=== PATIENT | female | born 1970 | race Caucasian/White ===

== ENCOUNTER → 2020-07-06 | Outpatient (CLI) | payer OTHER ==
[~2020-07-06] MED LIST: ACHD5005 PO; ACYC200C PO; CEFD125S3 PO; CRAN1CAP3 PO; CRAN237L PO; CRAN400C PO; HYDR-4226 PO; METF-397 PO; ONDA4TAB11 PO; ONDA8TAB13 PO; SACU1TAB2 PO; [UNRECOGNIZED DRUG - CODE] PO; [UNRECOGNIZED DRUG - CODE] PO
== END ==
LOC: RAD FS 08:12
DX: Z53.9 Procedure and treatment not carried out, unspecified reason (principal)

== ENCOUNTER → 2022-01-03 | Day surgery (SDC) | payer BC, MEDICAID ==
--- NOTE | 2018-09-04 07:35 | ED General ---
General Chief Complaint: Emergency Delivery-Mother Stated Complaint: sick History of Present Illness Date Seen by Provider: September 04, 2018 Time Seen by Provider: 07:30 Allergies and Home Medications Allergies Coded Allergies: peanut (Verified Allergy, Severe, 06/30/16) soy (Verified Allergy, Severe, 06/30/16) wheat (Verified Allergy, Severe, 06/30/16) corn (Verified Allergy, Intermediate, 06/30/16) morphine (Verified Allergy, Unknown, 11/25/15) Home Medications Babcock Flavor 25 Ml Syrup, 25 ML PO ONCE Prescribed by: OLMAN PICHARDO on 05/15/18 1439 Cranberry 400 Mg Capsule, 400 MG PO DAILY, (Reported) Cranberry Juice 237 Ml Liquid, 237 ML PO DAILY Prescribed by: GUILLERMO FARLEY on 01/25/17 1023 Metformin HCl 500 Mg Tablet, 1,000 MG PO BID Prescribed by: TRES FLORES on 06/06/18 1106 Milk Based Formula/[place] Starch 237 Ml Liquid, 237 ML PO 5XD Prescribed by: GUILLERMO FARLEY on 06/23/16 1227 Sacubitril/Valsartan 1 Each Tablet, 1 TAB PO BID Prescribed by: TRES FLORES on 05/15/18 1514 Patient Home Medication List Home Medication List Reviewed: Yes Review of Systems All Other Systems Reviewed Negative Unless Noted: Yes Past Oeynpni-Zypyuj-Ffwdwr Hx Past Med/Social Hx: Reviewed Nursing Past Med/Soc Hx Patient Social History Recent Foreign Travel: No Contact w/Someone Who Travel: No Family Medical History Reviewed and Corrections made Physical Exam-Suspected Sepsis Physical Exam Vital Signs Capillary Refill : Height, Weight, BMI Height: 5'3.00" Weight: 145lbs. 0.0oz. [id number]; 25.7 BMI Method: Extremity: Other Progress/Results/Core Measures Suspected Sepsis SIRS Temperature: Pulse: Respiratory Rate: Blood Pressure / Mean: Results/Orders My Orders Orders - JAZZY REYNA MD Cbc With Automated Diff (09/04/18 07:16) Magnesium (09/04/18 07:16) Chest 1 View Ap/Pa Only (09/04/18 07:16) Ekg Tracing (09/04/18 07:16) Comprehensive Metabolic Panel (09/04/18 07:16) Protime With Inr (09/04/18 07:16) Partial Thromboplastin Time (09/04/18 07:16) O2 (09/04/18 07:16) Monitor-Rhythm Ecg Trace Only (09/04/18 07:16) Aspirin Chewable Tablet (Baby Aspirin Ch (09/04/18 07:30) Nitroglycerin 0.4 Mg Btl 25's (Nitrostat (09/04/18 07:30) Ed Iv/Invasive Line Start (09/04/18 07:16) Troponin T (09/04/18 07:16) Probnp Fs (09/04/18 07:16) Vital Signs/I&O Capillary Refill : Departure Impression Disposition: 01 HOME, SELF-CARE Condition: Improved Departure-Patient Inst. Patient Instructions: Abdominal Aortic Aneurysm Scripts Cefdinir (Cefdinir) 125 Mg/5 Ml Susp.recon 5 ML PO DAILY, #50 ML 0 Refills Prov: JAZZY REYNA MD 09/04/18 Metformin HCl (Metformin HCl) 500 Mg Tablet 1000 MG PO BID for 30 Days, TAB Prov: GUILLERMO FARLEY MD 06/06/18 JAZZY REYNA MD September 04, 2018 07:35
[2018-10-11 08:58] VITALS: BP 120/90
[2018-10-11 09:00] VITALS: BP 120/90
[2018-10-11 09:02] VITALS: BP 120/90
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
--- NOTE | 2019-01-16 14:13 | Physical Therapy Evaluation ---
PT Evaluation-General Medical Diagnosis Admission Date Height/Weight Height (Feet): 5 Height (Inches): 3.00 Weight (Pounds): 145 Weight (Ounces): 0.0 Precautions Precautions/Isolations: Airborne Isolation, Chemo Precautions Prior Prior Level of Function Therapy Quality Codes: 6 Independent with activity with or without an assistive device 5 Patient requires set up or clean up by helper. Patient completes activity by themselves 4 Supervision or touching assist (CGA). Stewart provide cues , steadying evelyn t 3 The helper provides less than half the effort to complete the activity 2 The helper provides more than half the effort to complete the activity 1 Dependent. The helper does all the effort to complete an activity 7 Patient refused to complete or attempt activity 9 The patient did not perform the activity before the current illness or injury 88 Not attempted due to Medical conditions or safety concerns Indoor Mobility (Ambulation): Needed Some Help LAURA HODGES OT Jan 16, 2019 14:13
[2019-01-22 15:54] VITALS: BP 120/100
[2019-02-14] MEDS: morphine INJ 10 MG/ML 1ML (SYR OR VIAL) IVP PRN (14:42)
[2019-02-24] MEDS: NS IV 1000 ML 1,000 ML IV SCH ×2 (13:00→13:30)
[2019-02-24 13:37] VITALS: BP 130/90
[2019-02-24 13:38] VITALS: BP_SYST 130; BP_SYST 140; BP_DIAS 100; BP_DIAS 90
[2019-03-04 09:09] VITALS: BP 140/90
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
--- NOTE | 2019-06-02 13:51 | Progress Note ---
Subjective Review of Systems General: Chills, Night Sweats, Fatigue; No Malaise, No Appetite; Other (TEST) HEENT: Head Aches (MIGRAINE) Pulmonary: Dyspnea, Cough; No Pleuritic Chest Pain, No Other Cardiovascular: Orthopnea, Paroxysmal Noc. Dyspnea, Edema, Lt Headedness, Ot her; No: Chest Pain, Palpitations Objective Exam Last Set of Vital Signs Capillary Refill : Less Than 3 Seconds Assessment/Plan Assessment/Plan (1) Sepsis Status: Acute Assessment & Plan: ASSESSMENT PLAN Qualifiers: Qualified Codes: A41.01 - Sepsis due to methicillin susceptible Staphylococcus aureus; R65.20 - Severe sepsis without septic shock; N17.1 - Acute kidney failure with acute cortical necrosis (2) CHF (congestive heart failure) (3) Anemia (4) DVT (deep venous thrombosis) Status: Acute (5) Abdominal pain Status: Acute Qualifiers: Qualified Codes: R10.84 - Generalized abdominal pain Clinical Quality Measures DVT/VTE Risk/Contraindication: Risk Factor Score Per Nursin RFS Level Per Nursing on Admit: 4+=Very High Sepsis: Within 3hrs of presentation: Admin fluids, Admin 30ml/kg IBW due to BMI>30, Admin ABX, Blood cultures prior to ABX's, Focus exam, Lactate level GUILLERMO FARLEY MD Jun 02, 2019 13:51
[2019-07-02 09:24] VITALS: BP 140/90
--- NOTE | 2019-11-13 15:04 | Procedure/Intervention Note ---
Procedures/Interventions Dental Procedures: Dental I&D Date of ETT Placement: Jun 30, 2018 Time of ETT Placement: 908 Medications: Etomidate Positive End Tide CO2: Yes Breath Sounds after Intubation: bilateral-equal Intubation Complications: no complications, nose-unsuccessful attempt Post Intubation Xray: Yes TESTING Staple Repair: Stapler Skin Precise GUILLERMO FARLEY MD Nov 13, 2019 15:04
--- NOTE | 2019-11-13 15:09 | History & Physical ---
History of Present Illness History of Present Illness Date of Admission I consulted on this patient on 11/13/19 15:04 Attending Physician Admitting Physician Consult Allergies and Home Medications Allergies Coded Allergies: peanut (Verified Allergy, Severe, 06/30/16) soy (Verified Allergy, Severe, 06/30/16) wheat (Verified Allergy, Severe, 06/30/16) corn (Verified Allergy, Intermediate, 06/30/16) Sulfa (Sulfonamide Antibiotics) (Verified Allergy, Unknown, 02/24/19) NAUSA AND VOMITING morphine (Verified Allergy, Unknown, 11/25/15) Uncoded Allergies: CHOCOLATE SYRUP (Adverse Reaction, Unknown, 02/24/19) NAUSEA Home Medications Cefdinir 125 Mg/5 Ml Susp.recon, 5 ML PO DAILY Prescribed by: JAZZY REYNA on 09/04/18 0745 Babcock Flavor 25 Ml Syrup, 25 ML PO ONCE Prescribed by: OLMAN PICHARDO on 05/15/18 1439 Cranberry 400 Mg Capsule, 400 MG PO DAILY, (Reported) Cranberry Juice 237 Ml Liquid, 237 ML PO DAILY Prescribed by: GUILLERMO FARLEY on 01/25/17 1023 Hydrocodone/Acetaminophen 1 Each Tablet, 1 TAB PO Q6H Prescribed by: OLMAN PICHARDO on 06/20/19 1224 Metformin HCl 500 Mg Tablet, 1,000 MG PO BID Prescribed by: TRES FLORES on 06/06/18 1106 Milk Based Formula/[place] Starch 237 Ml Liquid, 237 ML PO 5XD Prescribed by: GUILLERMO FARLEY on 06/23/16 1227 Ondansetron 8 Mg Tab.rapdis, 8 MG PO Q8H, (Reported) Ondansetron 4 Mg Tab.rapdis, 8 MG PO Q6H PRN for NAUSEA/VOMITING Prescribed by: BONNY MCNAMARA on 05/30/19 1902 Sacubitril/Valsartan 1 Each Tablet, 1 TAB PO BID Prescribed by: TRES FLORES on 05/15/18 1514 Past Qwyghce-Vpdvjr-Fwsqel Hx Patient Social History Alcohol Use: Regular Use Alcohol Beverage of Choice: Cheap Liquor Smoking Status: Current Everyday Smoker Type Used: MOGL Recent Foreign Travel: No Contact w/other who traveled: No Immunizations Up To Date Tetanus Booster (TDap): Less than 5yrs Surgeries Gallbladder (2019) Family Medical History Significant Family History: No Pertinent Family Hx, DVT/PE Physical Exam Vital Signs Capillary Refill : Less Than 3 Seconds Height, Weight, BMI Height: 5'3.00" Weight: 145lbs. 0.0oz. 65.553495fe; 244.14 BMI Method: Assessment/Plan Assessment and Plan Problems: (1) Sepsis Status: Acute Qualifiers: Qualified Codes: A41.01 - Sepsis due to methicillin susceptible Staphylococcus aureus; R65.20 - Severe sepsis without septic shock; N17.1 - Acute kidney failure with acute cortical necrosis (2) Abdominal wall pain Status: Acute Clinical Quality Measures DVT/VTE Risk/Contraindication: Risk Factor Score Per Nursin RFS Level Per Nursing on Admit: 4+=Very High LINNEA GUIDRY MED STUDENT Nov 13, 2019 15:09
--- NOTE | 2019-11-13 15:10 | History & Physical ---
ALLI MARIE MED STUDENT 11/13/19 1510: History of Present Illness History of Present Illness Date of Admission I consulted on this patient on 11/13/19 15:05 Attending Physician Admitting Physician Consult Allergies and Home Medications Allergies Coded Allergies: peanut (Verified Allergy, Severe, 06/30/16) soy (Verified Allergy, Severe, 06/30/16) wheat (Verified Allergy, Severe, 06/30/16) corn (Verified Allergy, Intermediate, 06/30/16) Sulfa (Sulfonamide Antibiotics) (Verified Allergy, Unknown, 02/24/19) NAUSA AND VOMITING morphine (Verified Allergy, Unknown, 11/25/15) Uncoded Allergies: CHOCOLATE SYRUP (Adverse Reaction, Unknown, 02/24/19) NAUSEA Home Medications Cefdinir 125 Mg/5 Ml Susp.recon, 5 ML PO DAILY Prescribed by: JAZZY REYNA on 09/04/18 0745 Babcock Flavor 25 Ml Syrup, 25 ML PO ONCE Prescribed by: OLMAN PICHARDO on 05/15/18 1439 Cranberry 400 Mg Capsule, 400 MG PO DAILY, (Reported) Cranberry Juice 237 Ml Liquid, 237 ML PO DAILY Prescribed by: GUILLERMO FARLEY on 01/25/17 1023 Hydrocodone/Acetaminophen 1 Each Tablet, 1 TAB PO Q6H Prescribed by: OLMAN PICHARDO on 06/20/19 1224 Metformin HCl 500 Mg Tablet, 1,000 MG PO BID Prescribed by: TRES FLORES on 06/06/18 1106 Milk Based Formula/[place] Starch 237 Ml Liquid, 237 ML PO 5XD Prescribed by: GUILLERMO FARLEY on 06/23/16 1227 Ondansetron 8 Mg Tab.rapdis, 8 MG PO Q8H, (Reported) Ondansetron 4 Mg Tab.rapdis, 8 MG PO Q6H PRN for NAUSEA/VOMITING Prescribed by: BONNY MCNAMARA on 05/30/19 1902 Sacubitril/Valsartan 1 Each Tablet, 1 TAB PO BID Prescribed by: TRES FLORES on 05/15/18 1514 Patient Home Medication List Home Medication List Reviewed: Yes Past Zylgtgk-Ehonjk-Qefxbt Hx Patient Social History Alcohol Use: Regular Use Alcohol Beverage of Choice: Cheap Liquor Smoking Status: Current Everyday Smoker Type Used: Hookah Recent Foreign Travel: No Contact w/other who traveled: No Immunizations Up To Date Tetanus Booster (TDap): Less than 5yrs Surgeries Gallbladder Family Medical History Significant Family History: No Pertinent Family Hx, DVT/PE Review of Systems Constitutional: no symptoms reported EENTM: ear discharge, dental problems; No see HPI, No no symptoms reported, No hearing loss, No ear pain, No blurred vision, No double vision, No eye pain, No tearing, No vision loss, No hoarseness, No mouth pain, No mouth swelling, No epistaxis, No nose congestion, No nose pain, No throat pain, No throat swelling, No other Respiratory: see HPI Cardiovascular: see HPI Gastrointestinal: see HPI Genitourinary: see HPI Musculoskeletal: see HPI Skin: see HPI Psychiatric/Neurological: No Symptoms Reported, See HPI All Other Systems Reviewed Negative Unless Noted: Yes Physical Exam Vital Signs Capillary Refill : Less Than 3 Seconds Height, Weight, BMI Height: 5'3.00" Weight: 145lbs. 0.0oz. 65.909889oc; 244.14 BMI Method: Neck: Full Range of Motion, Normal Inspection, Non Tender, Supple, Carotid Bruit; No JVD, No Limited Range of Motion, No Lymphadenopathy (L), No Lymphadenopathy (R), No Tender Lateral, No Tender Midline, No Thyromegaly, No Other Respiratory: Chest Non Tender, Lungs Clear, Normal Breath Sounds, No Accessory Muscle Use, No Respiratory Distress; No Accessory Muscle Use, No Crackles, No Decreased Breath Sounds, No Expiration, No Inspiration, No Pleural Rub, No Rales, No Respiratory Distress, No Rhonci, No Stridor, No Wheezing, No Other Cardiovascular: Regular Rate, Rhythm, No Edema, No Gallop, No JVD, No Murmur, Normal Peripheral Pulses; No Bradycardia, No Diastolic Murmur, No Systolic Murmur, No Extra Beats, No Friction Rub, No Gallop/S3, No Gallop/S4, No Irregularly Irregular, No JVD, No Tachycardia, No Other Assessment/Plan Assessment and Plan Problems: (1) Sepsis Status: Acute Qualifiers: Qualified Codes: A41.01 - Sepsis due to methicillin susceptible Staphylococcus aureus; R65.20 - Severe sepsis without septic shock; N17.1 - Acute kidney failure with acute cortical necrosis (2) Abdominal wall pain Status: Acute (3) Abdominal pain Status: Acute Qualifiers: Qualified Codes: R10.84 - Generalized abdominal pain Clinical Quality Measures DVT/VTE Risk/Contraindication: Risk Factor Score Per Nursin RFS Level Per Nursing on Admit: 4+=Very High ROSA PETERS DO 11/14/19 0718: Allergies and Home Medications Allergies Coded Allergies: peanut (Verified Allergy, Severe, 06/30/16) soy (Verified Allergy, Severe, 06/30/16) wheat (Verified Allergy, Severe, 06/30/16) corn (Verified Allergy, Intermediate, 06/30/16) Sulfa (Sulfonamide Antibiotics) (Verified Allergy, Unknown, 02/24/19) NAUSA AND VOMITING morphine (Verified Allergy, Unknown, 11/25/15) Uncoded Allergies: CHOCOLATE SYRUP (Adverse Reaction, Unknown, 02/24/19) NAUSEA Home Medications Cefdinir 125 Mg/5 Ml Susp.recon, 5 ML PO DAILY Prescribed by: JAZZY REYNA on 09/04/18 0745 Babcock Flavor 25 Ml Syrup, 25 ML PO ONCE Prescribed by: OLMAN PICHARDO on 05/15/18 1439 Cranberry 400 Mg Capsule, 400 MG PO DAILY, (Reported) Cranberry Juice 237 Ml Liquid, 237 ML PO DAILY Prescribed by: GUILLERMO FARLEY on 01/25/17 1023 Hydrocodone/Acetaminophen 1 Each Tablet, 1 TAB PO Q6H Prescribed by: OLMAN PICHARDO on 06/20/19 1224 Metformin HCl 500 Mg Tablet, 1,000 MG PO BID Prescribed by: TRES FLORES on 06/06/18 1106 Milk Based Formula/[place] Starch 237 Ml Liquid, 237 ML PO 5XD Prescribed by: GUILLERMO FARLEY on 06/23/16 1227 Ondansetron 8 Mg Tab.rapdis, 8 MG PO Q8H, (Reported) Ondansetron 4 Mg Tab.rapdis, 8 MG PO Q6H PRN for NAUSEA/VOMITING Prescribed by: BONNY MCNAMARA on 05/30/19 1902 Sacubitril/Valsartan 1 Each Tablet, 1 TAB PO BID Prescribed by: TRES FLORES on 05/15/18 1514 ALLI MARIE MED STUDENT Nov 13, 2019 15:10 ROSA PETERS DO Nov 14, 2019 07:18
--- NOTE | 2019-11-13 15:10 | History & Physical ---
History of Present Illness History of Present Illness Reason for visit/HPI TEST Date of Admission Date Seen by a Provider: Nov 13, 2019 Time Seen by a Provider: 15:07 I consulted on this patient on 11/13/19 15:04 Attending Physician Admitting Physician Consult Allergies and Home Medications Allergies Coded Allergies: peanut (Verified Allergy, Severe, 06/30/16) soy (Verified Allergy, Severe, 06/30/16) wheat (Verified Allergy, Severe, 06/30/16) corn (Verified Allergy, Intermediate, 06/30/16) Sulfa (Sulfonamide Antibiotics) (Verified Allergy, Unknown, 02/24/19) NAUSA AND VOMITING morphine (Verified Allergy, Unknown, 11/25/15) Uncoded Allergies: CHOCOLATE SYRUP (Adverse Reaction, Unknown, 02/24/19) NAUSEA Home Medications Cefdinir 125 Mg/5 Ml Susp.recon, 5 ML PO DAILY Prescribed by: JAZZY REYNA on 09/04/18 0745 Babcock Flavor 25 Ml Syrup, 25 ML PO ONCE Prescribed by: OLMAN PICHARDO on 05/15/18 1439 Cranberry 400 Mg Capsule, 400 MG PO DAILY, (Reported) Cranberry Juice 237 Ml Liquid, 237 ML PO DAILY Prescribed by: GUILLERMO FARLEY on 01/25/17 1023 Hydrocodone/Acetaminophen 1 Each Tablet, 1 TAB PO Q6H Prescribed by: OLMAN PICHARDO on 06/20/19 1224 Metformin HCl 500 Mg Tablet, 1,000 MG PO BID Prescribed by: TRES FLORES on 06/06/18 1106 Milk Based Formula/[place] Starch 237 Ml Liquid, 237 ML PO 5XD Prescribed by: GUILLERMO FARLEY on 06/23/16 1227 Ondansetron 8 Mg Tab.rapdis, 8 MG PO Q8H, (Reported) Ondansetron 4 Mg Tab.rapdis, 8 MG PO Q6H PRN for NAUSEA/VOMITING Prescribed by: BONNY MCNAMARA on 05/30/19 1902 Sacubitril/Valsartan 1 Each Tablet, 1 TAB PO BID Prescribed by: TRES FLORES on 05/15/18 1514 Patient Home Medication List Home Medication List Reviewed: Yes (NURSING DOCUMENTED HOME MEDS) Past Azdancs-Pnsaai-Gruugu Hx Patient Social History Alcohol Use: Regular Use Alcohol Beverage of Choice: Cheap Liquor Smoking Status: Current Everyday Smoker Type Used: Hookah Recent Foreign Travel: No Contact w/other who traveled: No Immunizations Up To Date Tetanus Booster (TDap): Less than 5yrs Surgeries Angioplasty, Appendectomy, Bladder Surgery, Breast Family Medical History Significant Family History: No Pertinent Family Hx, DVT/PE Review of Systems Constitutional: no symptoms reported, see HPI; No chills, No diaphoresis, No dizziness, No fever, No malaise, No weakness, No weight gain, No weight loss, No other EENTM: see HPI, no symptoms reported; No ear discharge, No hearing loss, No ear pain, No blurred vision, No double vision Respiratory: no symptoms reported, see HPI Cardiovascular: no symptoms reported, see HPI; No chest pain, No edema; Hx of Intervention; No palpitations; syncope, vascular heart diseas, other Gastrointestinal: dysphagia, hematemesis, heartburn Genitourinary: see HPI Musculoskeletal: see HPI Skin: see HPI Psychiatric/Neurological: No Symptoms Reported, See HPI All Other Systems Reviewed Negative Unless Noted: Yes (Negative excepted noted.) Physical Exam Vital Signs Capillary Refill : Less Than 3 Seconds Height, Weight, BMI Height: 5'3.00" Weight: 145lbs. 0.0oz. 65.915834tc; 244.14 BMI Method: General Appearance: No Apparent Distress, WD/WN HEENT: PERRL/EOMI, TMs Normal, Normal ENT Inspection, Pharynx Normal Neck: Full Range of Motion, Normal Inspection, Non Tender, Supple, Carotid Bruit Cardiovascular: Regular Rate, Rhythm, No Edema, No Gallop, No JVD, No Murmur, Normal Peripheral Pulses; No Bradycardia, No Diastolic Murmur, No Systolic Murmur, No Extra Beats, No Friction Rub, No Gallop/S3, No Gallop/S4, No Irregularly Irregular, No JVD, No Tachycardia, No Other Gastrointestinal: Normal Bowel Sounds, No Organomegaly, No Pulsatile Mass, Non Tender, Soft; No Abnormal Bowel Sounds, No Distended, No Guarding, No Hepatomegaly, No Hernia, No Mass, No Rebound, No Splenomegaly, No Tenderness, No Other Assessment/Plan Assessment and Plan Problems: (1) Sepsis Status: Acute Qualifiers: Qualified Codes: A41.01 - Sepsis due to methicillin susceptible Staphylococcus aureus; R65.20 - Severe sepsis without septic shock; N17.1 - Acute kidney failure with acute cortical necrosis Assessment & Plan: ASSESSMENT PLAN (2) Abdominal pain Status: Acute Qualifiers: Qualified Codes: R10.84 - Generalized abdominal pain (3) DVT (deep venous thrombosis) Status: Acute (4) Gastroesophageal reflux disease Status: Acute Qualifiers: Qualified Codes: K21.0 - Gastro-esophageal reflux disease with esophagitis Clinical Quality Measures DVT/VTE Risk/Contraindication: Risk Factor Score Per Nursin RFS Level Per Nursing on Admit: 4+=Very High Sepsis: Within 3hrs of presentation: Admin fluids, Admin 30ml/kg IBW due to BMI>30, Admin ABX, Blood cultures prior to ABX's, D/C Instructions given to patient, Focus exam, Lactate level (2.5 REDRAWING IN 2 HRS) Copy Copies To 1: GUILLERMO FARLEY MD Copies To 2: KARON CARRANZA JOHN E MD Nov 13, 2019 15:09
--- NOTE | 2019-11-13 15:10 | History & Physical ---
History of Present Illness History of Present Illness Reason for visit/HPI Testing Date of Admission Date Seen by a Provider: Nov 13, 2019 Time Seen by a Provider: 15:07 I consulted on this patient on 11/13/19 15:04 Attending Physician Admitting Physician Consult Allergies and Home Medications Allergies Coded Allergies: peanut (Verified Allergy, Severe, 06/30/16) soy (Verified Allergy, Severe, 06/30/16) wheat (Verified Allergy, Severe, 06/30/16) corn (Verified Allergy, Intermediate, 06/30/16) Sulfa (Sulfonamide Antibiotics) (Verified Allergy, Unknown, 02/24/19) NAUSA AND VOMITING morphine (Verified Allergy, Unknown, 11/25/15) Uncoded Allergies: CHOCOLATE SYRUP (Adverse Reaction, Unknown, 02/24/19) NAUSEA Home Medications Cefdinir 125 Mg/5 Ml Susp.recon, 5 ML PO DAILY Prescribed by: JAZZY REYNA on 09/04/18 0745 Babcock Flavor 25 Ml Syrup, 25 ML PO ONCE Prescribed by: OLMAN PICHARDO on 05/15/18 1439 Cranberry 400 Mg Capsule, 400 MG PO DAILY, (Reported) Cranberry Juice 237 Ml Liquid, 237 ML PO DAILY Prescribed by: GUILLERMO FARLEY on 01/25/17 1023 Hydrocodone/Acetaminophen 1 Each Tablet, 1 TAB PO Q6H Prescribed by: OLMAN PICHARDO on 06/20/19 1224 Metformin HCl 500 Mg Tablet, 1,000 MG PO BID Prescribed by: TRES FLORES on 06/06/18 1106 Milk Based Formula/[place] Starch 237 Ml Liquid, 237 ML PO 5XD Prescribed by: GUILLERMO FARLEY on 06/23/16 1227 Ondansetron 8 Mg Tab.rapdis, 8 MG PO Q8H, (Reported) Ondansetron 4 Mg Tab.rapdis, 8 MG PO Q6H PRN for NAUSEA/VOMITING Prescribed by: BONNY MCNAMARA on 05/30/19 1902 Sacubitril/Valsartan 1 Each Tablet, 1 TAB PO BID Prescribed by: TRES FLORES on 05/15/18 1514 Patient Home Medication List Home Medication List Reviewed: Yes Past Fnyhqxl-Masyfr-Ntipsg Hx Patient Social History Alcohol Use: Regular Use Smoking Status: Current Everyday Smoker Type Used: Hookah Recent Foreign Travel: No Contact w/other who traveled: No Immunizations Up To Date Tetanus Booster (TDap): Less than 5yrs Family Medical History Significant Family History: No Pertinent Family Hx, DVT/PE Review of Systems Constitutional: no symptoms reported; No see HPI, No chills, No diaphoresis, No dizziness, No fever, No malaise, No weakness, No weight gain, No weight loss, No other EENTM: ear discharge, ear pain; No hearing loss, No blurred vision Respiratory: see HPI Cardiovascular: see HPI Gastrointestinal: see HPI; No hematemesis Genitourinary: see HPI Musculoskeletal: see HPI, gout, muscle pain Skin: see HPI Psychiatric/Neurological: No Symptoms Reported, See HPI All Other Systems Reviewed Negative Unless Noted: Yes Physical Exam Vital Signs Capillary Refill : Less Than 3 Seconds Height, Weight, BMI Height: 5'3.00" Weight: 145lbs. 0.0oz. 65.518564jy; 244.14 BMI Method: Cardiovascular: Regular Rate, Rhythm, No Edema, No Gallop, No JVD, No Murmur, Normal Peripheral Pulses; No Bradycardia, No Diastolic Murmur, No Systolic Murmur, No Extra Beats, No Friction Rub, No Gallop/S3, No Gallop/S4, No Irregularly Irregular, No JVD, No Tachycardia, No Other Genital/Rectal: Blood at Uretheral Meatus Assessment/Plan Assessment and Plan Problems: (1) Sepsis Status: Acute Qualifiers: Qualified Codes: A41.01 - Sepsis due to methicillin susceptible Staphylococcus aureus; R65.20 - Severe sepsis without septic shock; N17.1 - Acute kidney failure with acute cortical necrosis (2) DVT (deep venous thrombosis) Status: Acute Clinical Quality Measures DVT/VTE Risk/Contraindication: Risk Factor Score Per Nursin RFS Level Per Nursing on Admit: 4+=Very High LEO GUIDRY MED STUDENT Nov 13, 2019 15:10
--- NOTE | 2019-11-13 15:10 | History & Physical ---
History of Present Illness History of Present Illness Reason for visit/HPI test Date of Admission 11/12/19 Date Seen by a Provider: Nov 14, 2019 Time Seen by a Provider: 03:12 I consulted on this patient on 11/13/19 15:04 Attending Physician Admitting Physician Consult Allergies and Home Medications Allergies Coded Allergies: peanut (Verified Allergy, Severe, 06/30/16) soy (Verified Allergy, Severe, 06/30/16) wheat (Verified Allergy, Severe, 06/30/16) corn (Verified Allergy, Intermediate, 06/30/16) Sulfa (Sulfonamide Antibiotics) (Verified Allergy, Unknown, 02/24/19) NAUSA AND VOMITING morphine (Verified Allergy, Unknown, 11/25/15) Uncoded Allergies: CHOCOLATE SYRUP (Adverse Reaction, Unknown, 02/24/19) NAUSEA Home Medications Cefdinir 125 Mg/5 Ml Susp.recon, 5 ML PO DAILY Prescribed by: JAZZY REYNA on 09/04/18 0745 Babcock Flavor 25 Ml Syrup, 25 ML PO ONCE Prescribed by: OLMAN PICHARDO on 05/15/18 1439 Cranberry 400 Mg Capsule, 400 MG PO DAILY, (Reported) Cranberry Juice 237 Ml Liquid, 237 ML PO DAILY Prescribed by: GUILLERMO FARLEY on 01/25/17 1023 Hydrocodone/Acetaminophen 1 Each Tablet, 1 TAB PO Q6H Prescribed by: OLMAN PICHARDO on 06/20/19 1224 Metformin HCl 500 Mg Tablet, 1,000 MG PO BID Prescribed by: TRES FLORES on 06/06/18 1106 Milk Based Formula/[place] Starch 237 Ml Liquid, 237 ML PO 5XD Prescribed by: GUILLERMO FARLEY on 06/23/16 1227 Ondansetron 8 Mg Tab.rapdis, 8 MG PO Q8H, (Reported) Ondansetron 4 Mg Tab.rapdis, 8 MG PO Q6H PRN for NAUSEA/VOMITING Prescribed by: BONNY MCNAMARA on 05/30/19 1902 Sacubitril/Valsartan 1 Each Tablet, 1 TAB PO BID Prescribed by: TRES FLORES on 05/15/18 1514 Patient Home Medication List Home Medication List Reviewed: Yes (nurse did it) Past Jdeoxcw-Fhovjb-Oepypl Hx Patient Social History Alcohol Use: Regular Use Alcohol Beverage of Choice: Cheap Liquor Smoking Status: Current Everyday Smoker Type Used: Hookah, Pipe Physical Abuse Screen: Yes Recent Foreign Travel: No Contact w/other who traveled: No Immunizations Up To Date Tetanus Booster (TDap): Less than 5yrs Surgeries Gallbladder (2019) Neurological Multiple Sclerosis Family Medical History Significant Family History: No Pertinent Family Hx, DVT/PE Review of Systems Constitutional: no symptoms reported, see HPI; No chills, No diaphoresis, No dizziness, No fever, No malaise, No weakness, No weight gain, No weight loss, No other EENTM: ear pain; No ear discharge, No hearing loss, No double vision Respiratory: no symptoms reported, see HPI; No cough; dyspnea on exertion, hemoptysis, orthopnea, phlegm, short of breath, stridor, wheezing, other Cardiovascular: No no symptoms reported, No see HPI, No chest pain, No edema, No Hx of Intervention, No palpitations, No syncope, No vascular heart diseas, No other Gastrointestinal: see HPI Physical Exam Vital Signs Capillary Refill : Less Than 3 Seconds Height, Weight, BMI Height: 5'3.00" Weight: 145lbs. 0.0oz. 65.824592dr; 244.14 BMI Method: Eyes: Bilateral Eye Abnormal Pupil Neck: Non Tender Assessment/Plan Assessment and Plan Problems: (1) Anemia Clinical Quality Measures DVT/VTE Risk/Contraindication: Risk Factor Score Per Nursin RFS Level Per Nursing on Admit: 4+=Very High Copy Copies To 1: GUILLERMO FARLEY MD, ELIZABETH X MED STUDENT Nov 13, 2019 15:09
--- NOTE | 2020-01-19 14:30 | Pulmonary Progress Note ---
Subjective Date Seen by a Provider: Jan 19, 2020 Time Seen by a Provider: 14:25 Subjective/Events-last exam TESTING Sepsis Event Evaluation Height, Weight, BMI Height: 5'3.00" Weight: 145lbs. 0.0oz. 65.545543wo; 244.14 BMI Method: Bedside Monitoring CVP Measures: Less than 8 ScvO2 measures: Greater than 70% Passive Leg Raise/Fluid Bolus: Positive Focused Exam Respiratory: Chest Non Tender; No Crackles Cardiovascular: Regular Rate, Rhythm, No Edema, No Gallop, No JVD, No Murmur, Normal Peripheral Pulses; No Bradycardia, No Diastolic Murmur, No Systolic Murmur, No Extra Beats, No Friction Rub, No Gallop/S3, No Gallop/S4, No Irregula rly Irregular, No JVD, No Tachycardia, No Other Exam Exam Height & Weight Height: 5'3.00" Weight: 145lbs. 0.0oz. 65.609334sg; 244.14 BMI Method: General Appearance: No Apparent Distress, WD/WN HEENT: PERRL/EOMI, TMs Normal, Normal ENT Inspection, Pharynx Normal Neck: Full Range of Motion, Normal Inspection, Non Tender, Supple, Carotid Bruit; No JVD, No Limited Range of Motion, No Lymphadenopathy (L), No Lymphadenopathy (R), No Tender Lateral, No Tender Midline, No Thyromegaly, No Other Respiratory: Chest Non Tender, Lungs Clear, Normal Breath Sounds, No Accessory Muscle Use, No Respiratory Distress; No Accessory Muscle Use, No Crackles, No Decreased Breath Sounds, No Expiration, No Inspiration, No Pleural Rub, No Rales, No Respiratory Distress, No Rhonci, No Stridor, No Wheezing, No Other Cardiovascular: Regular Rate, Rhythm, No Edema, No Gallop, No JVD, No Murmur, Normal Peripheral Pulses; No Bradycardia, No Diastolic Murmur, No Systolic Murmur, No Extra Beats, No Friction Rub, No Gallop/S3, No Gallop/S4, No Irregularly Irregular, No JVD, No Tachycardia, No Other Capillary Refill: Less Than 3 Seconds Extremity: Normal Capillary Refill, Normal Inspection, Normal Range of Motion, Non Tender, No Calf Tenderness, No Pedal Edema Neurologic/Psychiatric: Alert, Oriented x3, No Motor/Sensory Deficits, Normal Mood/Affect Skin: Normal Color, Warm/Dry Lymphatic: No Adenopathy Diagnosis/Problems Diagnosis/Problems (1) Sepsis Status: Acute Assessment & Plan: FOR THE DAY ASSESSMENT PLAN Qualifiers: (2) DVT (deep venous thrombosis) Status: Acute Qualifiers: Qualified Codes: I82.432 - Acute embolism and thrombosis of left popliteal vein (3) Abdominal pain Status: Acute Qualifiers: Qualified Codes: R10.13 - Epigastric pain (4) Gastroesophageal reflux disease Status: Acute Qualifiers: Qualified Codes: K21.0 - Gastro-esophageal reflux disease with esophagitis GUILLERMO FARLEY MD Jan 19, 2020 14:30
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
[2020-07-29] MEDS: morphine INJ 10 MG/ML 1ML (SYR OR VIAL) IVP PRN (14:40)
--- NOTE | 2020-11-10 16:02 | History & Physical ---
History of Present Illness History of Present Illness Reason for visit/HPI Coughing for 5 days Date of Admission 11/09/20 Date Seen by a Provider: Nov 10, 2020 Time Seen by a Provider: 05:23 I consulted on this patient on 11/10/20 15:57 Attending Physician Admitting Physician Consult Allergies and Home Medications Allergies Coded Allergies: peanut (Verified Allergy, Severe, 06/30/16) soy (Verified Allergy, Severe, 06/30/16) corn (Verified Allergy, Intermediate, 06/30/16) Sulfa (Sulfonamide Antibiotics) (Verified Allergy, Unknown, 02/24/19) NAUSA AND VOMITING morphine (Verified Allergy, Unknown, 11/25/15) sulfalene (Verified Allergy, Unknown, 04/06/20) SOB Uncoded Allergies: chocolate bar (Allergy, Unknown, Shortness of Breath, 04/06/20) CHOCOLATE SYRUP (Adverse Reaction, Unknown, 02/24/19) NAUSEA Home Medications Cefdinir 125 Mg/5 Ml Susp.recon, 5 ML PO DAILY Prescribed by: JAZZY REYNA on 09/04/18 0745 Last Action: Reviewed Babcock Flavor 25 Ml Syrup, 25 ML PO ONCE Prescribed by: OLMAN PICHARDO on 05/15/18 1439 Last Action: Reviewed Cranberry 400 Mg Capsule, 400 MG PO DAILY, (Reported) Last Action: Reviewed Cranberry Juice 237 Ml Liquid, 237 ML PO DAILY Prescribed by: GUILLERMO FARLEY on 01/25/17 1023 Last Action: Reviewed Hydrocodone/Acetaminophen 1 Each Tablet, 1 TAB PO Q6H Prescribed by: OLMAN PICHARDO on 06/20/19 1224 Metformin HCl 500 Mg Tablet, 1,000 MG PO BID Prescribed by: TRES FLORES on 06/06/18 1106 Last Action: Reviewed Milk Based Formula/[place] Starch 237 Ml Liquid, 237 ML PO 5XD Prescribed by: GUILLERMO FARLEY on 06/23/16 1227 Last Action: Reviewed Ondansetron 8 Mg Tab.rapdis, 8 MG PO Q8H, (Reported) Last Action: Reviewed Ondansetron 4 Mg Tab.rapdis, 8 MG PO Q6H PRN for NAUSEA/VOMITING Prescribed by: BONNY MCNAMARA on 05/30/19 1902 Sacubitril/Valsartan 1 Each Tablet, 1 TAB PO BID Prescribed by: TRES FLORES on 05/15/18 1514 Last Action: Reviewed Past Czwrqpo-Bhjbkc-Dzybag Hx Patient Social History Marrital Status: single Employed/Student: unemployed, student, full-time Smoking Status: Current Someday Smoker E-Cig or Vaping type used: Nicotine (only once per montha) Current Status Communicates: Does Not Communicate Primary Language: Kyrgyz Past Medical History Surgeries: Gallbladder Multiple Sclerosis Family Medical History Reviewed and Corrections made No Pertinent Family Hx, DVT/PE Review of Systems Constitutional: no symptoms reported, chills; No diaphoresis, No dizziness, No fever, No malaise, No weakness, No weight gain; weight loss; No other Respiratory: No no symptoms reported, No see HPI; cough; No dyspnea on exertion, No hemoptysis, No orthopnea, No phlegm, No short of breath, No stridor, No wheezing, No other Physical Exam Vital Signs Capillary Refill : Less Than 3 Seconds Height, Weight, BMI Height: 5'3.00" Weight: 145lbs. 0.0oz. 65.359124hm; 244.14 BMI Method: General Appearance: No Apparent Distress, WD/WN Eyes: Bilateral Eye Normal Inspection, Bilateral Eye PERRL, Bilateral Eye EOMI Respiratory: Chest Non Tender, Lungs Clear, Normal Breath Sounds, No Accessory Muscle Use, No Respiratory Distress Assessment/Plan Assessment and Plan Problems: (1) Abdominal pain Status: Acute Qualifiers: Qualified Codes: R10.13 - Epigastric pain Assessment & Plan: Make a plan for this patient (2) Sepsis Status: Acute Qualifiers: Qualified Codes: A41.9 - Sepsis, unspecified organism; R65.21 - Severe sepsis with septic shock; N17.1 - Acute kidney failure with acute cortical necrosis Assessment & Plan: FOR THE DAY ASSESSMENT PLAN (3) Gastroesophageal reflux disease Status: Acute Qualifiers: Qualified Codes: K21.0 - Gastro-esophageal reflux disease with esophagitis (4) DVT (deep venous thrombosis) Status: Acute Qualifiers: Qualified Codes: I82.432 - Acute embolism and thrombosis of left popliteal vein Clinical Quality Measures DVT/VTE Risk/Contraindication: Risk Factor Score Per Nursin RFS Level Per Nursing on Admit: 4+=Very High ANDRIY CAVAZOS Nov 10, 2020 16:02
--- NOTE | 2020-11-15 09:22 | History & Physical-OB/GYN ---
OB - Chief Complaint & HPI Date/Time Date of Admission: Date of Admission: Date seen by a Provider: Nov 15, 2020 Time Seen by a Provider: 09:17 Chief Complaint/History OB-Reason for Admission/Chief: Labor (TEST) Hx : 30 Indication for induction: maternal discomfort Allergies and Home Medications Allergies Coded Allergies: peanut (Verified Allergy, Severe, 06/30/16) soy (Verified Allergy, Severe, 06/30/16) corn (Verified Allergy, Intermediate, 06/30/16) wool (Unverified Allergy, Intermediate, 11/10/20) Sulfa (Sulfonamide Antibiotics) (Verified Allergy, Unknown, 02/24/19) NAUSA AND VOMITING sulfalene (Verified Allergy, Unknown, 04/06/20) SOB Uncoded Allergies: chocolate bar (Allergy, Unknown, Shortness of Breath, 04/06/20) CHOCOLATE SYRUP (Adverse Reaction, Unknown, 02/24/19) NAUSEA Home Medications Cefdinir 125 Mg/5 Ml Susp.recon, 5 ML PO DAILY Prescribed by: JAZZY REYNA on 09/04/18 0745 Last Action: Reviewed Babcock Flavor 25 Ml Syrup, 25 ML PO ONCE Prescribed by: OLMAN PICHARDO on 05/15/18 1439 Last Action: Reviewed Cranberry 400 Mg Capsule, 400 MG PO DAILY, (Reported) Last Action: Reviewed Cranberry Juice 237 Ml Liquid, 237 ML PO DAILY Prescribed by: GUILLERMO FARLEY on 01/25/17 1023 Last Action: Reviewed Hydrocodone/Acetaminophen 1 Each Tablet, 1 TAB PO Q6H Prescribed by: OLMAN PICHARDO on 06/20/19 1224 Metformin HCl 500 Mg Tablet, 1,000 MG PO BID Prescribed by: TRES FLORES on 06/06/18 1106 Last Action: Reviewed Milk Based Formula/[place] Starch 237 Ml Liquid, 237 ML PO 5XD Prescribed by: GUILLERMO FARLEY on 06/23/16 1227 Last Action: Reviewed Ondansetron 8 Mg Tab.rapdis, 8 MG PO Q8H, (Reported) Last Action: Reviewed Ondansetron 4 Mg Tab.rapdis, 8 MG PO Q6H PRN for NAUSEA/VOMITING Prescribed by: BONNY MCNAMARA on 05/30/19 1902 Sacubitril/Valsartan 1 Each Tablet, 1 TAB PO BID Prescribed by: TRES FLORES on 05/15/18 1514 Last Action: Reviewed Patient Home Medication List Home Medication List Reviewed: Yes OB - History Hx of Present Ultrasounds: No ultrasounds Obstetrical Complications: None Medical Complications: None Information Induced Hypertension: No Maternal Gestational Diabetes: No Hemorrhage: No Obstetrical History Hx Termination: No Patient Past Medical History No previous med hx. Social History/Family History Alcohol Use: Regular Use Immunizations Tetanus Booster (TDap): Less than 5yrs OB - Admission Exam Physical Exam HEENT: NCAT Lungs: Clear Amniotic Fluid: Clear Heart Rate: 120's Decelerations: No Decelerations OB - Assessment/Plan/Diagnosis Assessment Assessment: active labor Admission Status: Inpatient Order (span 2 midnights) Plan Problems: (1) labor in third trimester with term delivery Assessment & Plan: Test (2) premature rupture of membranes, onset of labor within 24 hours of rupture, unspecified trimester (3) Anemia Assessment & Plan: Test, plan to order blood. Qualifiers: Qualified Codes: D50.8 - Other iron deficiency anemias Discharge Diagnosis Diagnosis: contractions, went home. BETO AMARO MED STUDENT Nov 15, 2020 09:22
--- NOTE | 2020-11-15 09:22 | History & Physical-OB/GYN ---
OB - Chief Complaint & HPI Date/Time Date of Admission: Date of Admission: Date seen by a Provider: Nov 15, 2020 Time Seen by a Provider: 09:16 Chief Complaint/History OB-Reason for Admission/Chief: Labor (TEST) Hx : 96 Indication for induction: post dates, maternal discomfort Other reason for admission: TEST Admission Nurse Assessment Rev: Yes Allergies and Home Medications Allergies Coded Allergies: peanut (Verified Allergy, Severe, 06/30/16) soy (Verified Allergy, Severe, 06/30/16) corn (Verified Allergy, Intermediate, 06/30/16) wool (Unverified Allergy, Intermediate, 11/10/20) Sulfa (Sulfonamide Antibiotics) (Verified Allergy, Unknown, 02/24/19) NAUSA AND VOMITING sulfalene (Verified Allergy, Unknown, 04/06/20) SOB Uncoded Allergies: chocolate bar (Allergy, Unknown, Shortness of Breath, 04/06/20) CHOCOLATE SYRUP (Adverse Reaction, Unknown, 02/24/19) NAUSEA Home Medications Cefdinir 125 Mg/5 Ml Susp.recon, 5 ML PO DAILY Prescribed by: JAZZY REYNA on 09/04/18 0775 Last Action: Reviewed Babcock Flavor 25 Ml Syrup, 25 ML PO ONCE Prescribed by: OLMAN PICHARDO on 05/15/18 1439 Last Action: Reviewed Cranberry 400 Mg Capsule, 400 MG PO DAILY, (Reported) Last Action: Reviewed Cranberry Juice 237 Ml Liquid, 237 ML PO DAILY Prescribed by: GUILLERMO FARLEY on 01/25/17 1023 Last Action: Reviewed Hydrocodone/Acetaminophen 1 Each Tablet, 1 TAB PO Q6H Prescribed by: OLMAN PICHARDO on 06/20/19 1224 Metformin HCl 500 Mg Tablet, 1,000 MG PO BID Prescribed by: TRES FLORES on 06/06/18 1106 Last Action: Reviewed Milk Based Formula/[place] Starch 237 Ml Liquid, 237 ML PO 5XD Prescribed by: GUILLERMO FARLEY on 06/23/16 1227 Last Action: Reviewed Ondansetron 8 Mg Tab.rapdis, 8 MG PO Q8H, (Reported) Last Action: Reviewed Ondansetron 4 Mg Tab.rapdis, 8 MG PO Q6H PRN for NAUSEA/VOMITING Prescribed by: BONNY MCNAMARA on 05/30/19 1902 Sacubitril/Valsartan 1 Each Tablet, 1 TAB PO BID Prescribed by: TRES FLORES on 05/15/18 1514 Last Action: Reviewed Patient Home Medication List Home Medication List Reviewed: No OB - History Hx of Present Care: Yes Ultrasounds: No ultrasounds Obstetrical Complications: None Information Induced Hypertension: Yes Maternal Gestational Diabetes: Yes Hemorrhage: Yes Obstetrical History Hx Termination: Yes Hx Multiple Gestation: Yes Delivery History Hx Dystocia: Yes Hx Placenta Abnormality: Yes Hx Vaginal Delivery Post C-Sec: Yes Patient Past Medical History NO PREVIOUS MED HX Social History/Family History Alcohol Use: Regular Use Immunizations Tetanus Booster (TDap): Less than 5yrs OB - Admission Exam Physical Exam HEENT: NCAT Heart: Rhythm Normal Lungs: Clear, Crackles, Rales Decelerations: No Decelerations OB - Assessment/Plan/Diagnosis Assessment Assessment: active labor Admission Status: Inpatient Order (span 2 midnights) Plan Problems: (1) Sepsis Qualifiers: Qualified Codes: A41.9 - Sepsis, unspecified organism; R65.21 - Severe sepsis with septic shock; N17.1 - Acute kidney failure with acute cortical necrosis (2) DVT (deep venous thrombosis) Qualifiers: Qualified Codes: I82.432 - Acute embolism and thrombosis of left popliteal vein (3) Abdominal pain Qualifiers: Qualified Codes: R10.13 - Epigastric pain (4) Gastroesophageal reflux disease Qualifiers: Qualified Codes: K21.0 - Gastro-esophageal reflux disease with esophagitis (5) premature rupture of membranes, onset of labor within 24 hours of rupture, unspecified trimester GUILLERMO FARLEY MD Nov 15, 2020 09:22
--- NOTE | 2020-12-13 09:48 | Progress Note ---
Objective Exam Last Set of Vital Signs Capillary Refill : Less Than 3 Seconds General: Alert, Oriented X3, Cooperative, No Acute Distress, Mild Distress Heart: Regular Rate, Normal S1, Normal S2 Results/Procedures Lab Microbiology 06/25/20 Blood Culture, Received Pending Assessment/Plan Assessment/Plan (1) COVID-19 Status: Acute Assessment & Plan: assessment plan (2) Pneumonia and influenza Status: Acute Assessment & Plan: plan for pneu (3) Sepsis Status: Acute Qualifiers: Qualified Codes: A41.9 - Sepsis, unspecified organism; R65.21 - Severe sepsis with septic shock; N17.1 - Acute kidney failure with acute cortical necrosis (4) CHF (congestive heart failure) Status: Chronic Qualifiers: (5) Anemia Status: Chronic Qualifiers: Qualified Codes: D51.8 - Other vitamin B12 deficiency anemias (6) DVT (deep venous thrombosis) Status: Acute Qualifiers: Qualified Codes: I82.432 - Acute embolism and thrombosis of left popliteal vein (7) Abdominal pain Status: Acute Qualifiers: Qualified Codes: R10.13 - Epigastric pain (8) Sepsis Status: Acute (9) Anemia (10) Pneumonia Clinical Quality Measures DVT/VTE Risk/Contraindication: Risk Factor Score Per Nursin RFS Level Per Nursing on Admit: 4+=Very High Sepsis: Within 3hrs of presentation: Admin fluids, Admin 30ml/kg IBW due to BMI>30, Admin ABX, Blood cultures prior to ABX's, Focus exam, Lactate level, Other (other) JOCELYNE COLLAZO Dec 13, 2020 09:47
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
--- NOTE | 2021-11-09 14:17 | History & Physical ---
History of Present Illness History of Present Illness Reason for visit/HPI Chest pain Date of Admission Date Seen by a Provider: Nov 09, 2021 Time Seen by a Provider: 01:56 I consulted on this patient on 11/09/21 14:11 Attending Physician Admitting Physician Admitting Physician: Attending Physician: Consult Allergies and Home Medications Allergies Coded Allergies: peanut (Verified Allergy, Severe, 06/30/16) soy (Verified Allergy, Severe, 06/30/16) corn (Verified Allergy, Intermediate, 06/30/16) wool (Unverified Allergy, Intermediate, 11/10/20) Sulfa (Sulfonamide Antibiotics) (Verified Allergy, Unknown, 02/24/19) NAUSA AND VOMITING sulfalene (Verified Allergy, Unknown, 04/06/20) SOB Uncoded Allergies: chocolate bar (Allergy, Unknown, Shortness of Breath, 04/06/20) CHOCOLATE SYRUP (Adverse Reaction, Unknown, 02/24/19) NAUSEA Patient Home Medication List Home Medication List Reviewed: Yes Docusate Sodium (Colace) 100 Mg Capsule, 100 MG PO BID, (Reported) Entered as Reported by: ROSE REDDY on 02/25/21 1153 Docusate Sodium (Colace) 100 Mg Capsule, 100 MG PO DAILY Prescribed by: ROSE REDDY on 02/25/21 1156 Vit#36/Iron/FA Cmb#6 (Prenate Elite Tablet) 1 Each Tablet, 1 EACH PO DAILY, (Reported) Entered as Reported by: OLMAN PICHARDO on 02/25/21 0959 Past [id number] Hx Patient Social History Marrital Status: single Employed/Student: unemployed, student, full-time Tobacco Use?: Yes Tobacco type used: Cigars Smoking Status: Current Everyday Smoker Smokeless type used: Pouch Smokeless Tobacco Frequency: Current Everyday User Use of E-Cig and/or Vaping dev: No E-Cig or Vaping type used: Nicotine (only once per montha), Marijuana Current Status Communicates: Does Not Communicate Primary Language: [place] Past Medical History Surgeries: Gallbladder Multiple Sclerosis NO PREVIOUS MED HX Family Medical History Reviewed and Corrections made No Pertinent Family Hx, DVT/PE Review of Systems EENTM: no symptoms reported, ear pain, tearing, hoarseness; No ear discharge, No hearing loss Respiratory: cough Gastrointestinal: abdominal pain (LUQ) Genitourinary: dysuria; No hematuria, No hesitancy, No incontinence, No noctu davina : No Musculoskeletal: no symptoms reported All Other Systems Reviewed Negative Unless Noted: Yes Physical Exam Vital Signs Capillary Refill : Less Than 3 Seconds Height, Weight, BMI Height: 5'3.00" Weight: 145lbs. 0.0oz. [id number]; 244.00 BMI Method: Eyes: Right Eye Normal Inspection, Right Eye PERRL, Right Eye EOMI; Left Eye Abnormal EOM, Left Eye Abnormal Pupil, Left Eye Conjunctivae Pale, Left Eye Lid Inflammation Assessment/Plan Assessment and Plan Problems: (1) Sepsis Status: Acute Qualifiers: Qualified Codes: A40.1 - Sepsis due to Streptococcus, group B; R65.21 - Severe sepsis with septic shock; N17.1 - Acute kidney failure with acute cortical necrosis (2) DVT (deep venous thrombosis) Status: Acute Qualifiers: Qualified Codes: I82.432 - Acute embolism and thrombosis of left popliteal vein (3) Anemia (4) Abdominal pain Status: Acute Qualifiers: Qualified Codes: R10.13 - Epigastric pain (5) Gastroesophageal reflux disease Status: Acute Qualifiers: Qualified Codes: K21.0 - Gastro-esophageal reflux disease with esophagitis (6) premature rupture of membranes, onset of labor within 24 hours of rupture, unspecified trimester (7) Fatigue Clinical Quality Measures DVT/VTE Risk/Contraindication: Risk Factor Score Per Nursin RFS Level Per Nursing on Admit: 4+=Very High YEIMI MALONE Nov 09, 2021 14:17
[~2022-01-03] VITALS: Ht 64 cm; Wt 100.0 kg
[~2022-01-03] MED LIST changes: +ACETAMINOPHEN 325 MG TABLET PO PRN; +ACETAMINOPHEN 500 MG TAB (TYLENOL) PO PRN; +ASPIRIN 81 MG CHEW (CHILDREN'S ASA) PO ONE; +CIPR250S3 PO; +DOCU-143 PO; +ETOMIDATE IV SOLN 20 MG/10 ML VIAL IV ONE; +HYDROcodone/APAP 5 MG/325 MG (LORTAB) TAB PO PRN; +HYDROcodone/APAP 7.5 MG/325 MG (LORTAB, LORCET PLUS) TABLET PO PRN; +IBUPROFEN 600 MG (MOTRIN) TAB PO PRN; +KETAMINE HCL 100 MG/ML 5 ML VIAL IM ONE; +KETOROLAC 30 MG/ML VIAL IVP PRN; +NITROGLYCERIN 0.4 MG SL TABS BTL 25'S SL PRN; +NOREPINEPHRINE 4 MG/250 ML 250 ML IV SCH; +NS IV 1000 ML 1,000 ML IV SCH; +NS IV ONE; +ONDANSETRON 4 MG/2 ML (SDV) Z0FRAN IVP PRN; +PATIENT MAY USE OWN MEDS, ALL PO SCH; +POTASSIUM PHOSPHATE INJ 15 MM in NS (IVPB) 250 ML IV ONE; +PREN-123 PO; +RABIES VACCINE HUMAN DIPL CELL 1 ML/2.5 UNITS SYR IM ONE; +RASBURICASE IV ONE; +SOTALOL 80 MG (BETAPACE) TAB PO SCH; +morphine INJ 10 MG/ML 1ML (SYR OR VIAL) IVP ONE; +morphine INJ 10 MG/ML 1ML (SYR OR VIAL) IVP PRN; +morphine INJ 4 MG/ML 1 ML (VIAL/SYRINGE) IVP PRN
== END | disposition home or self-care (01) ==
LOC: EDUNIT# 06-03 20:54 → ER FS 06-03 20:58 → ER 12-27 12:45 → CSD 12-27 12:47 → UNDOADMOB 12-27 12:47 → ER 09:12 → SDC 09:13
DX: R68.89 Other general symptoms and signs (principal)
CPT/HCPCS: 81002; 84703; 87040; 87804; 99291; 99292